=== PATIENT | male | born 1960 | race African-American/Black ===

== ENCOUNTER 2017-02-16 14:48 | Inpatient (IN) | payer OTHER ==
[2017-02-16] MEDS: ASPIRIN 81 MG TAB PO (15:39)
[2017-02-16 16:01] LABS: WHITE BLOOD COUNT 14.2 10^3/ul (4.8-10.8)
[2017-02-16 16:01] LABS: ABNORMAL IP MESSAGE 1; HEMATOCRIT 32.7 % (42.0-52.0); HEMOGLOBIN 11.4 g/dl (14.0-18.0); MEAN CORPUSCULAR HEMOGLOBIN 32.6 pg (29.0-33.0); MEAN CORPUSCULAR HGB CONC 34.9 g/dl (32.0-37.0); MEAN CORPUSCULAR VOLUME 93.4 fl (82.0-101.0); MEAN PLATELET VOLUME 10.9 fl (7.4-10.4); PLATELET COUNT 55 10^3/UL (140-415); POSITIVE DIFF @See below; RED CELL DISTRIBUTION WIDTH 12.4 % (11.5-14.5)
[2017-02-16] MEDS: morphine 4 MG/ML VIAL IV (16:08)
[2017-02-16] MEDS: hydrALAzine 20 MG INJ IV (16:09)
[2017-02-16 16:12] LABS: ADD MAN DIFF? YES
[2017-02-16 16:14] LABS: INR 1.01; PARTIAL THROMBOPLASTIN TIME 31.7 Sec (25.0-35.0); PROTIME 13.4 Sec (11.9-14.9)
[2017-02-16 16:19] LABS: ANION GAP 16 (8-16); BLOOD UREA NITROGEN 49 mg/dl (7-20); CALCIUM 9.2 mg/dl (8.4-10.2); CARBON DIOXIDE 28 mmol/L (21-31); CHLORIDE 105 mmol/L (97-110); CREATININE 2.78 mg/dl (0.61-1.24); GLUCOSE 131 mg/dl (70-220); POTASSIUM 4.1 mmol/L (3.5-5.1); SODIUM 145 mmol/L (135-144)
[2017-02-16 16:29] LABS: BAND NEUTROPHILS #M 0.4 10^3/ul (0.0-0.6); BAND NEUTROPHILS % (M) 3 % (0-4); GIANT THROMBO% (M) 1 % (0-0); LYMPHOCYTES #M 0.2 10^3/ul (0.8-2.9); LYMPHOCYTES % (M) 2 % (15-51); MONOCYTE #M 1.8 10^3/ul (0.3-0.9); MONOCYTES % (M) 13 % (0-11); PLATELET ESTIMATE DECREASED; POLYCHROMASIA 1+ (0-0); SEG NEUT #M 11.7 10^3/ul (1.7-7.5); SEGMENTED NEUTROPHILS (M) % 82 % (39-77); SMUDGE%M 2 % (0-0)
[2017-02-16] MEDS: LABETALOL HCL 20MG INJ IV ×2 (16:36→18:49)
[2017-02-16] MEDS: niCARdipine-NS 0.1MG/ML DRIP 200 ML IV (18:38)
[2017-02-16] MEDS: DEXTROSE 5%-0.45% NACL 1,000 ML IV (19:19)
[2017-02-16] MEDS ORDERED: ALBUTEROL/IPRATROPIUM (NEB) 3 ML AMP NEB (19:30)
[2017-02-16] MEDS ORDERED: BISACODYL (EC) 5 MG TAB PO (19:30)
[2017-02-16] MEDS ORDERED: HEPARIN 1000 UNITS/ML 10 ML INJ IV ×2 (19:30)
[2017-02-16] MEDS ORDERED: HYDROCODONE/APAP (5/325) TAB PO (19:30)
[2017-02-16] MEDS ORDERED: HALOPERIDOL 5 MG INJ IV (19:30)
[2017-02-16] MEDS ORDERED: ONDANSETRON 4 MG INJ IV (19:30)
[2017-02-16] MEDS ORDERED: ACETAMINOPHEN 650MG/20.3ML CUP PO (19:30)
[2017-02-16] MEDS ORDERED: HEPARIN 25000 UNITS/250 ML 250 ML IV (19:30)
[2017-02-16] MEDS ORDERED: LORAZEPAM 2 MG INJ IV (19:30)
[2017-02-16 20:37] LABS: VALPROATE 43 ug/ml (50-100)
[2017-02-16 22:11] LABS: CREATINE KINASE 89 IU/L (23-200)
[2017-02-16 22:23] LABS: CK INDEX 2.6
[2017-02-16 22:24] LABS: TROPONIN-I 0.425 ng/ml (0.00-0.12)
[2017-02-17] MEDS: RISPERIDONE 1 MG TAB PO ×3 (01:00→22:20)
[2017-02-17] MEDS: DIVALPROEX (EC) 250 MG TAB PO ×3 (01:00→22:20)
[2017-02-17] MEDS: ATORVASTATIN 80 MG TAB PO ×2 (01:00→22:20)
[2017-02-17] MEDS: QUETIAPINE 25 MG TAB PO ×3 (01:00→22:20)
[2017-02-17] MEDS: FAMOTIDINE 20 MG INJ IV ×2 (01:20→12:15)
[2017-02-17] MEDS: niCARdipine-NS 0.1MG/ML DRIP 200 ML IV ×2 (04:00→09:27)
[2017-02-17 07:04] LABS: ABNORMAL IP MESSAGE 1; HEMATOCRIT 25.3 % (42.0-52.0); HEMOGLOBIN 8.6 g/dl (14.0-18.0); MEAN CORPUSCULAR HEMOGLOBIN 32.3 pg (29.0-33.0); MEAN CORPUSCULAR VOLUME 95.1 fl (82.0-101.0); MEAN PLATELET VOLUME 12.4 fl (7.4-10.4); PLATELET COUNT 48 10^3/UL (140-415); RED BLOOD COUNT 2.66 10^6/ul (4.70-6.10); RED CELL DISTRIBUTION WIDTH 12.6 % (11.5-14.5)
[2017-02-17 07:04] LABS: WHITE BLOOD COUNT 9.4 10^3/ul (4.8-10.8)
[2017-02-17 07:09] LABS: LACTIC ACID 1.2 mmol/L (0.5-2.0)
[2017-02-17 07:11] LABS: CREATINE KINASE 73 IU/L (23-200)
[2017-02-17 07:17] LABS: LDL CHOLESTEROL,CALCULATED 106 mg/dl
[2017-02-17 07:23] LABS: ALANINE AMINOTRANSFERASE 34 IU/L (13-69); ALBUMIN 2.7 g/dl (3.3-4.9); ALBUMIN/GLOBULIN RATIO 0.87; ALKALINE PHOSPHATASE 39 IU/L (42-121); ANION GAP 14 (8-16); ASPARTATE AMINO TRANSFERASE 32 IU/L (15-46); BILIRUBIN,INDIRECT 0.3 mg/dl (0-1.1); BILIRUBIN,TOTAL 0.3 mg/dl (0.2-1.3); BLOOD UREA NITROGEN 56 mg/dl (7-20); CALCIUM 8.1 mg/dl (8.4-10.2); CARBON DIOXIDE 27 mmol/L (21-31); CHLORIDE 107 mmol/L (97-110); CREATININE 2.96 mg/dl (0.61-1.24); GLUCOSE 112 mg/dl (70-220); POTASSIUM 3.9 mmol/L (3.5-5.1); SODIUM 144 mmol/L (135-144); TOTAL PROTEIN 5.8 g/dl (6.1-8.1)
[2017-02-17 07:24] LABS: CK INDEX 2.6
[2017-02-17 07:27] LABS: CK-MB 1.91 ng/ml (0.0-2.4); TROPONIN-I 0.261 ng/ml (0.00-0.12)
[2017-02-17 07:28] LABS: ADD MAN DIFF? YES
[2017-02-17 07:35] LABS: FREE THYROXINE INDEX (Calc) 4.11 ug/ml (0.65-3.89)
[2017-02-17 07:42] LABS: CHOLESTEROL 175 mg/dl (100-200)
[2017-02-17 07:42] LABS: HDL CHOLESTEROL 57 mg/dl (28-71); T3 UPTAKE 30.2 % (23.5-40.5); T4 (THYROXINE) 13.6 ug/dl (5.5-11.0); TRIGLYCERIDES 62 mg/dl (0-149)
[2017-02-17] MEDS: DEXTROSE 5%-0.45% NACL 1,000 ML IV (09:22)
[2017-02-17] MEDS: AMLODIPINE 10 MG TAB PO (12:15)
[2017-02-17] MEDS: ASPIRIN 81 MG TAB PO (12:16)
[2017-02-17 18:14] LABS: HEMATOCRIT 25.7 % (42.0-52.0); HEMOGLOBIN 8.8 g/dl (14.0-18.0)
[2017-02-17 18:31] LABS: IRON 18 ug/dl (35-150)
[2017-02-17 18:32] LABS: CREATINE KINASE 214 IU/L (23-200)
[2017-02-17 18:40] LABS: % IRON SATURATION 9 % SAT (22-52); TOTAL IRON BINDING CAPACITY 201 ug/dl (241-421)
[2017-02-17 18:45] LABS: CK INDEX 1.9
[2017-02-17 18:52] LABS: CK-MB 4.14 ng/ml (0.0-2.4); TROPONIN-I 0.188 ng/ml (0.00-0.12)
[2017-02-18] MEDS: DEXTROSE 5%-0.45% NACL 1,000 ML IV ×3 (00:03→09:20)
[2017-02-18] MEDS: DIVALPROEX (EC) 250 MG TAB PO ×2 (09:00→20:37)
[2017-02-18] MEDS: QUETIAPINE 25 MG TAB PO ×2 (09:20→20:37)
[2017-02-18] MEDS: RISPERIDONE 1 MG TAB PO ×2 (09:20→20:37)
[2017-02-18] MEDS: ASPIRIN 81 MG TAB PO (09:20)
[2017-02-18] MEDS: FAMOTIDINE 20 MG INJ IV (09:21)
[2017-02-18] MEDS: AMLODIPINE 10 MG TAB PO (09:21)
[2017-02-18 10:07] LABS: ADD MAN DIFF? NO
[2017-02-18 10:14] LABS: WHITE BLOOD COUNT 7.6 10^3/ul (4.8-10.8)
[2017-02-18 10:14] LABS: ABNORMAL IP MESSAGE 1; BASOPHILS % 0.3 % (0.0-2.0); EOSINOPHILS # 0.7 10^3/ul (0.0-0.5); EOSINOPHILS % 9.2 % (0.0-7.0); HEMATOCRIT 24.2 % (42.0-52.0); HEMOGLOBIN 8.1 g/dl (14.0-18.0); LYMPHOCYTES % 13.5 % (15.0-51.0); MEAN CORPUSCULAR HGB CONC 33.5 g/dl (32.0-37.0); MEAN CORPUSCULAR VOLUME 95.7 fl (82.0-101.0); MEAN PLATELET VOLUME 11.8 fl (7.4-10.4); MONOCYTE # 0.9 10^3/ul (0.3-0.9); MONOCYTES % 12.2 % (0.0-11.0); NEUTROPHIL # 4.9 10^3/ul (1.6-7.5); NEUTROPHILS % 64.3 % (39.0-77.0); PLATELET COUNT 62 10^3/UL (140-415); POSITIVE DIFF @See below; RED BLOOD COUNT 2.53 10^6/ul (4.70-6.10); RED CELL DISTRIBUTION WIDTH 12.8 % (11.5-14.5)
[2017-02-18 10:33] LABS: ANION GAP 14 (8-16); BLOOD UREA NITROGEN 56 mg/dl (7-20); CARBON DIOXIDE 25 mmol/L (21-31); CHLORIDE 107 mmol/L (97-110); CREATINE KINASE 740 IU/L (23-200); CREATININE 3.09 mg/dl (0.61-1.24); GLUCOSE 89 mg/dl (70-220); MAGNESIUM 1.9 mg/dl (1.7-2.5); PHOSPHORUS 4.2 mg/dl (2.5-4.9); POTASSIUM 3.8 mmol/L (3.5-5.1); SODIUM 142 mmol/L (135-144)
[2017-02-18 10:41] LABS: CK INDEX 0.8; CK-MB 5.63 ng/ml (0.0-2.4); TROPONIN-I 0.162 ng/ml (0.00-0.12)
[2017-02-18] MEDS ORDERED: LABETALOL HCL 20MG INJ IV (12:00)
[2017-02-18] MEDS: CLONIDINE 0.1 MG/24 HR PATCH TRANSDERM (13:37)
[2017-02-18] MEDS: SOD FERRIC GLUC COMPLX 125 MG in SOD CHLORIDE 0.9% 100 ML IVPB (13:37)
[2017-02-18] MEDS: ATORVASTATIN 80 MG TAB PO (20:37)
[2017-02-19] MEDS: hydrALAzine 20 MG INJ IV (01:23)
[2017-02-19 08:23] LABS: ADD MAN DIFF? NO
[2017-02-19 08:28] LABS: HEMATOCRIT 24.9 % (42.0-52.0); HEMOGLOBIN 8.2 g/dl (14.0-18.0); MEAN CORPUSCULAR HEMOGLOBIN 31.9 pg (29.0-33.0); MEAN CORPUSCULAR HGB CONC 32.9 g/dl (32.0-37.0); MEAN CORPUSCULAR VOLUME 96.9 fl (82.0-101.0); NEUTROPHILS % 70.4 % (39.0-77.0); PLATELET COUNT 82 10^3/UL (140-415); RED BLOOD COUNT 2.57 10^6/ul (4.70-6.10); RED CELL DISTRIBUTION WIDTH 12.6 % (11.5-14.5)
[2017-02-19 08:29] LABS: ABNORMAL IP MESSAGE 1; BASOPHILS % 0.1 % (0.0-2.0); EOSINOPHILS # 0.4 10^3/ul (0.0-0.5); LYMPHOCYTES # 0.9 10^3/ul (0.8-2.9); LYMPHOCYTES % 13.1 % (15.0-51.0); MONOCYTE # 0.8 10^3/ul (0.3-0.9); MONOCYTES % 10.8 % (0.0-11.0); POSITIVE DIFF @See below
[2017-02-19 08:58] LABS: CREATINE KINASE 681 IU/L (23-200)
[2017-02-19 09:00] LABS: ANION GAP 16 (8-16); BLOOD UREA NITROGEN 57 mg/dl (7-20); CALCIUM 8.3 mg/dl (8.4-10.2); CARBON DIOXIDE 23 mmol/L (21-31); CHLORIDE 109 mmol/L (97-110); CREATININE 2.88 mg/dl (0.61-1.24); GLUCOSE 90 mg/dl (70-220); MAGNESIUM 1.9 mg/dl (1.7-2.5); POTASSIUM 3.8 mmol/L (3.5-5.1); SODIUM 144 mmol/L (135-144)
[2017-02-19] MEDS: AMLODIPINE 10 MG TAB PO (09:10)
[2017-02-19 09:11] LABS: CK INDEX 0.7; TROPONIN-I 0.109 ng/ml (0.00-0.12)
[2017-02-19] MEDS: DIVALPROEX (EC) 250 MG TAB PO ×2 (09:11→21:29)
[2017-02-19] MEDS: FAMOTIDINE 20 MG INJ IV (09:11)
[2017-02-19] MEDS: QUETIAPINE 25 MG TAB PO ×2 (09:11→21:29)
[2017-02-19] MEDS: ASPIRIN 81 MG TAB PO (09:12)
[2017-02-19] MEDS: RISPERIDONE 1 MG TAB PO ×2 (09:13→21:29)
[2017-02-19 09:16] LABS: CK-MB 4.51 ng/ml (0.0-2.4)
[2017-02-19] MEDS: SOD FERRIC GLUC COMPLX 125 MG in SOD CHLORIDE 0.9% 100 ML IVPB (12:17)
[2017-02-19] MEDS: ATORVASTATIN 80 MG TAB PO (21:29)
[2017-02-20 07:55] LABS: ADD MAN DIFF? NO
[2017-02-20 07:58] LABS: WHITE BLOOD COUNT 7.1 10^3/ul (4.8-10.8)
[2017-02-20 07:58] LABS: BASOPHILS % 0.1 % (0.0-2.0); EOSINOPHILS # 0.1 10^3/ul (0.0-0.5); EOSINOPHILS % 1.7 % (0.0-7.0); HEMATOCRIT 24.9 % (42.0-52.0); HEMOGLOBIN 8.1 g/dl (14.0-18.0); LYMPHOCYTES # 0.8 10^3/ul (0.8-2.9); LYMPHOCYTES % 11.6 % (15.0-51.0); MEAN CORPUSCULAR HEMOGLOBIN 31.8 pg (29.0-33.0); MEAN CORPUSCULAR HGB CONC 32.5 g/dl (32.0-37.0); MEAN CORPUSCULAR VOLUME 97.6 fl (82.0-101.0); MONOCYTE # 0.8 10^3/ul (0.3-0.9); MONOCYTES % 11.2 % (0.0-11.0); NEUTROPHIL # 5.2 10^3/ul (1.6-7.5); NEUTROPHILS % 73.8 % (39.0-77.0); PLATELET COUNT 112 10^3/UL (140-415); RED BLOOD COUNT 2.55 10^6/ul (4.70-6.10); RED CELL DISTRIBUTION WIDTH 12.7 % (11.5-14.5)
[2017-02-20 08:16] LABS: ANION GAP 16 (8-16); BLOOD UREA NITROGEN 55 mg/dl (7-20); CALCIUM 8.6 mg/dl (8.4-10.2); CARBON DIOXIDE 24 mmol/L (21-31); CHLORIDE 111 mmol/L (97-110); CREATININE 3.16 mg/dl (0.61-1.24); GLUCOSE 97 mg/dl (70-220); MAGNESIUM 2.1 mg/dl (1.7-2.5); POTASSIUM 3.5 mmol/L (3.5-5.1); SODIUM 147 mmol/L (135-144)
[2017-02-20] MEDS: QUETIAPINE 25 MG TAB PO ×2 (08:18→21:51)
[2017-02-20] MEDS: ASPIRIN 81 MG TAB PO (08:18)
[2017-02-20] MEDS: RISPERIDONE 1 MG TAB PO ×2 (08:19→21:52)
[2017-02-20] MEDS: DIVALPROEX (EC) 250 MG TAB PO ×2 (08:19→21:52)
[2017-02-20] MEDS: FAMOTIDINE 20 MG INJ IV (08:19)
[2017-02-20] MEDS: AMLODIPINE 10 MG TAB PO (08:20)
[2017-02-20] MEDS: SOD FERRIC GLUC COMPLX 125 MG in SOD CHLORIDE 0.9% 100 ML IVPB (11:58)
[2017-02-20] MEDS: DEXTROSE 5% 1,000 ML IV (11:58)
[2017-02-20] MEDS: ATORVASTATIN 80 MG TAB PO (21:51)
[2017-02-20] MEDS: EPOETIN 4000 UNITS/ML (NON ESRD/NON ONCOLOGY) SC (22:23)
[2017-02-20 23:06] LABS: CREATININE,URINE RANDOM 77.67 mg/dl (20-370)
[2017-02-20 23:42] LABS: SCRET 3.16 mg/dl (0.61-1.24)
[2017-02-20 23:44] LABS: COLLECTION PERIOD 24 hrs; CREATININE CLEARANCE 18.8 mls/min (84.0-162.0); VOLUME 1100 ml/24hrs
[2017-02-21 08:24] LABS: WHITE BLOOD COUNT 7.7 10^3/ul (4.8-10.8)
[2017-02-21 08:24] LABS: ABNORMAL IP MESSAGE 1; HEMATOCRIT 24.1 % (42.0-52.0); MEAN CORPUSCULAR HEMOGLOBIN 32.4 pg (29.0-33.0); MEAN CORPUSCULAR HGB CONC 33.2 g/dl (32.0-37.0); MEAN CORPUSCULAR VOLUME 97.6 fl (82.0-101.0); MEAN PLATELET VOLUME 10.4 fl (7.4-10.4); PLATELET COUNT 137 10^3/UL (140-415); POSITIVE DIFF @See below; RED BLOOD COUNT 2.47 10^6/ul (4.70-6.10); RED CELL DISTRIBUTION WIDTH 12.9 % (11.5-14.5)
[2017-02-21] MEDS: FAMOTIDINE 20 MG INJ IV (08:46)
[2017-02-21] MEDS: QUETIAPINE 25 MG TAB PO ×2 (08:48→20:18)
[2017-02-21] MEDS: RISPERIDONE 1 MG TAB PO ×2 (08:48→20:17)
[2017-02-21] MEDS: AMLODIPINE 10 MG TAB PO (08:48)
[2017-02-21] MEDS: ASPIRIN 81 MG TAB PO (08:48)
[2017-02-21] MEDS: DIVALPROEX (EC) 250 MG TAB PO ×2 (08:48→20:17)
[2017-02-21 08:51] LABS: ANION GAP 17 (8-16); BLOOD UREA NITROGEN 50 mg/dl (7-20); CARBON DIOXIDE 23 mmol/L (21-31); CHLORIDE 113 mmol/L (97-110); CREATININE 3.06 mg/dl (0.61-1.24); GLUCOSE 101 mg/dl (70-220); MAGNESIUM 2.1 mg/dl (1.7-2.5); PHOSPHORUS 4.4 mg/dl (2.5-4.9); POTASSIUM 3.6 mmol/L (3.5-5.1); SODIUM 149 mmol/L (135-144)
[2017-02-21 08:58] LABS: ADD MAN DIFF? YES
[2017-02-21 09:58] LABS: BAND NEUTROPHILS % (M) 1 % (0-4); EOSINOPHILS % (M) 2 % (0-7); LYMPHOCYTES #M 1.2 10^3/ul (0.8-2.9); LYMPHOCYTES % (M) 16 % (15-51); MONOCYTE #M 0.5 10^3/ul (0.3-0.9); MONOCYTES % (M) 7 % (0-11); PLATELET ESTIMATE DECREASED; REACTIVE LYMPHOCYTES% (M) 1 % (0-0); SEG NEUT #M 5.6 10^3/ul (1.7-7.5); SEGMENTED NEUTROPHILS (M) % 73 % (39-77); SMUDGE%M 8 % (0-0)
[2017-02-21] MEDS: DEXTROSE 5% 1,000 ML IV ×2 (12:06→20:19)
[2017-02-21] MEDS: SOD FERRIC GLUC COMPLX 125 MG in SOD CHLORIDE 0.9% 100 ML IVPB (12:06)
[2017-02-21] MEDS: ATORVASTATIN 80 MG TAB PO (20:16)
[2017-02-22 08:05] LABS: ABNORMAL IP MESSAGE 1; HEMATOCRIT 24.7 % (42.0-52.0); MEAN CORPUSCULAR HEMOGLOBIN 31.6 pg (29.0-33.0); MEAN CORPUSCULAR HGB CONC 32.4 g/dl (32.0-37.0); MEAN CORPUSCULAR VOLUME 97.6 fl (82.0-101.0); MEAN PLATELET VOLUME 10.3 fl (7.4-10.4); PLATELET COUNT 170 10^3/UL (140-415); POSITIVE DIFF @See below; RED BLOOD COUNT 2.53 10^6/ul (4.70-6.10); RED CELL DISTRIBUTION WIDTH 12.7 % (11.5-14.5)
[2017-02-22 08:05] LABS: WHITE BLOOD COUNT 8.7 10^3/ul (4.8-10.8)
[2017-02-22 08:34] LABS: ANION GAP 14 (8-16); BLOOD UREA NITROGEN 43 mg/dl (7-20); CALCIUM 8.2 mg/dl (8.4-10.2); CARBON DIOXIDE 26 mmol/L (21-31); CHLORIDE 110 mmol/L (97-110); CREATININE 3.05 mg/dl (0.61-1.24); GLUCOSE 101 mg/dl (70-220); PHOSPHORUS 3.9 mg/dl (2.5-4.9); POTASSIUM 3.4 mmol/L (3.5-5.1); SODIUM 147 mmol/L (135-144)
[2017-02-22] MEDS: RISPERIDONE 1 MG TAB PO (09:04)
[2017-02-22] MEDS: AMLODIPINE 10 MG TAB PO (09:04)
[2017-02-22] MEDS: DIVALPROEX (EC) 250 MG TAB PO ×2 (09:04→20:42)
[2017-02-22] MEDS: ASPIRIN 81 MG TAB PO (09:04)
[2017-02-22] MEDS: QUETIAPINE 25 MG TAB PO ×2 (09:04→20:41)
[2017-02-22] MEDS: FAMOTIDINE 20 MG INJ IV (09:05)
[2017-02-22 10:05] LABS: ADD MAN DIFF? YES
[2017-02-22 10:16] LABS: BAND NEUTROPHILS #M 0.1 10^3/ul (0.0-0.6); BAND NEUTROPHILS % (M) 2 % (0-4); EOSINOPHILS # 0.2 10^3/ul (0.0-0.5); EOSINOPHILS % (M) 2 % (0.0-7.0); LYMPHOCYTES # 1.2 10^3/ul (0.8-2.9); LYMPHOCYTES #M 1.2 10^3/ul (0.8-2.9); LYMPHOCYTES % (M) 14 % (15-51); METAMYELOCYTES #M 0.3 10^3/ul (0.0-0.0); METAMYELOCYTES %M 4 % (0-0); MONOCYTES % (M) 12 % (0-11); MYELOCYTES % (M) 1 % (0-0); SEG NEUT #M 5.7 10^3/ul (1.7-7.5); SEGMENTED NEUTROPHILS (M) % 65 % (39-77)
[2017-02-22 10:17] LABS: POLYCHROMASIA 1+ (0-0)
[2017-02-22] MEDS: hydrALAzine 20 MG INJ IV ×2 (11:35→15:55)
[2017-02-22] MEDS: SOD FERRIC GLUC COMPLX 125 MG in SOD CHLORIDE 0.9% 100 ML IVPB (11:35)
[2017-02-22 15:23] LABS: PHOSPHORUS 3.5 mg/dl (2.5-4.9)
[2017-02-22 17:46] LABS: ADD UMIC YES; UR ASCORBIC ACID NEGATIVE (NEGATIVE); UR BACTERIA FEW /HPF (NONE SEEN); UR BILIRUBIN (Dip) NEGATIVE (NEGATIVE); UR BLOOD (Dip) NEGATIVE (NEGATIVE); UR CLARITY CLEAR (CLEAR); UR COLOR YELLOW (YELLOW); UR GLUCOSE (Dip) NEGATIVE (NEGATIVE); UR KETONES (Dip) NEGATIVE (NEGATIVE); UR LEUKOCYTE ESTERASE (Dip) NEGATIVE Leu/ul (NEGATIVE); UR MUCUS FEW /HPF (NONE SEEN); UR NITRITE (Dip) NEGATIVE (NEGATIVE); UR RBC 1 /HPF (0-5); UR SPECIFIC GRAVITY (Dip) 1.013 (1.003-1.030); UR TOTAL PROTEIN (Dip) 2+ mg/dl (NEGATIVE); UR UROBILINOGEN (Dip) NEGATIVE (NEGATIVE); UR WBC 2 /HPF (0-5)
[2017-02-22] MEDS ORDERED: POTASSIUM CHLORIDE 50 ML IVPB (19:00)
[2017-02-22] MEDS ORDERED: POTASSIUM CHLORIDE 40 MEQ in DEXTROSE 5% 250 ML IVPB (19:00)
[2017-02-22] MEDS: ATORVASTATIN 20 MG TAB PO (20:42)
[2017-02-22] MEDS: POTASSIUM CHLORIDE 40 MEQ in DEXTROSE 5% 250 ML IVPB (20:44)
[2017-02-22] MEDS: CLONIDINE 0.3 MG/24 HR PATCH TRANSDERM (21:38)
[2017-02-22] MEDS: DEXTROSE 5% 1,000 ML IV (23:12)
[2017-02-23 08:06] LABS: ADD MAN DIFF? NO
[2017-02-23 08:20] LABS: ABNORMAL IP MESSAGE 1; BASOPHILS % 0.2 % (0.0-2.0); EOSINOPHILS # 0.1 10^3/ul (0.0-0.5); EOSINOPHILS % 1.1 % (0.0-7.0); HEMATOCRIT 23.5 % (42.0-52.0); HEMOGLOBIN 7.6 g/dl (14.0-18.0); LYMPHOCYTES # 1.1 10^3/ul (0.8-2.9); LYMPHOCYTES % 11.2 % (15.0-51.0); MEAN CORPUSCULAR HEMOGLOBIN 31.5 pg (29.0-33.0); MEAN CORPUSCULAR HGB CONC 32.3 g/dl (32.0-37.0); MEAN CORPUSCULAR VOLUME 97.5 fl (82.0-101.0); MEAN PLATELET VOLUME 10.2 fl (7.4-10.4); MONOCYTE # 1.5 10^3/ul (0.3-0.9); MONOCYTES % 15.5 % (0.0-11.0); NEUTROPHIL # 5.7 10^3/ul (1.6-7.5); NEUTROPHILS % 58.9 % (39.0-77.0); PLATELET COUNT 200 10^3/UL (140-415); POSITIVE DIFF @See below; RED BLOOD COUNT 2.41 10^6/ul (4.70-6.10); RED CELL DISTRIBUTION WIDTH 12.5 % (11.5-14.5)
[2017-02-23 08:20] LABS: WHITE BLOOD COUNT 9.7 10^3/ul (4.8-10.8)
[2017-02-23] MEDS: AMLODIPINE 10 MG TAB PO (08:28)
[2017-02-23] MEDS: ASPIRIN 81 MG TAB PO (08:28)
[2017-02-23] MEDS: RISPERIDONE 1 MG TAB PO (08:28)
[2017-02-23] MEDS: FAMOTIDINE 20 MG INJ IV (08:28)
[2017-02-23] MEDS: QUETIAPINE 25 MG TAB PO ×2 (08:28→20:57)
[2017-02-23] MEDS: DIVALPROEX (EC) 250 MG TAB PO ×2 (08:28→20:56)
[2017-02-23 08:29] LABS: ALBUMIN 2.7 g/dl (3.3-4.9); ANION GAP 10 (8-16); BLOOD UREA NITROGEN 33 mg/dl (7-20); CALCIUM 8.2 mg/dl (8.4-10.2); CARBON DIOXIDE 24 mmol/L (21-31); CHLORIDE 111 mmol/L (97-110); CREATININE 2.83 mg/dl (0.61-1.24); GLUCOSE 99 mg/dl (70-220); MAGNESIUM 1.9 mg/dl (1.7-2.5); PHOSPHORUS 3.3 mg/dl (2.5-4.9); POTASSIUM 3.9 mmol/L (3.5-5.1); SODIUM 141 mmol/L (135-144)
[2017-02-23] MEDS: DEXTROSE 5% 1,000 ML IV (12:25)
[2017-02-23] MEDS: ATORVASTATIN 20 MG TAB PO (20:56)
[2017-02-23] MEDS: BALSAM PERU/CASTOR OIL 60 GM TUBE TOP (20:58)
[2017-02-23] MEDS: morphine 2 MG INJ IV (21:09)
[2017-02-24] MEDS: DEXTROSE 5% 1,000 ML IV ×2 (01:52→15:12)
[2017-02-24 08:55] LABS: ABNORMAL IP MESSAGE 1; HEMATOCRIT 24.1 % (42.0-52.0); HEMOGLOBIN 7.9 g/dl (14.0-18.0); MEAN CORPUSCULAR HEMOGLOBIN 31.7 pg (29.0-33.0); MEAN CORPUSCULAR HGB CONC 32.8 g/dl (32.0-37.0); MEAN CORPUSCULAR VOLUME 96.8 fl (82.0-101.0); MEAN PLATELET VOLUME 9.6 fl (7.4-10.4); PLATELET COUNT 223 10^3/UL (140-415); POSITIVE DIFF @See below; RED BLOOD COUNT 2.49 10^6/ul (4.70-6.10)
[2017-02-24 08:55] LABS: WHITE BLOOD COUNT 8.7 10^3/ul (4.8-10.8)
[2017-02-24 08:59] LABS: ADD MAN DIFF? YES
[2017-02-24] MEDS: QUETIAPINE 25 MG TAB PO (09:16)
[2017-02-24] MEDS: DIVALPROEX (EC) 250 MG TAB PO (09:16)
[2017-02-24] MEDS: FAMOTIDINE 20 MG INJ IV (09:17)
[2017-02-24] MEDS: AMLODIPINE 10 MG TAB PO (09:17)
[2017-02-24] MEDS: BALSAM PERU/CASTOR OIL 60 GM TUBE TOP (09:17)
[2017-02-24] MEDS: ASPIRIN 81 MG TAB PO (09:17)
[2017-02-24 09:26] LABS: ALBUMIN 2.8 g/dl (3.3-4.9); ANION GAP 12 (8-16); BLOOD UREA NITROGEN 31 mg/dl (7-20); CALCIUM 8.4 mg/dl (8.4-10.2); CARBON DIOXIDE 26 mmol/L (21-31); CHLORIDE 104 mmol/L (97-110); CREATININE 2.49 mg/dl (0.61-1.24); GLUCOSE 103 mg/dl (70-220); MAGNESIUM 1.8 mg/dl (1.7-2.5); PHOSPHORUS 4.1 mg/dl (2.5-4.9); POTASSIUM 3.8 mmol/L (3.5-5.1); SODIUM 138 mmol/L (135-144)
[2017-02-24 09:28] LABS: ANISOCYTOSIS 1+ (0-0); BAND NEUTROPHILS #M 0.4 10^3/ul (0.0-0.6); BAND NEUTROPHILS % (M) 5 % (0-4); EOSINOPHILS % (M) 2 % (0-7); LYMPHOCYTES #M 0.7 10^3/ul (0.8-2.9); LYMPHOCYTES % (M) 9 % (15-51); METAMYELOCYTES #M 0.1 10^3/ul (0.0-0.0); METAMYELOCYTES %M 2 % (0-0); MONOCYTE #M 0.6 10^3/ul (0.3-0.9); MONOCYTES % (M) 8 % (0-11); PLATELET ESTIMATE NORMAL; POLYCHROMASIA 1+ (0-0); REACTIVE LYMPHOCYTES #M 0.2 10^3/ul (0.0-0.0); REACTIVE LYMPHOCYTES% (M) 3 % (0-0); SEG NEUT #M 6.2 10^3/ul (1.7-7.5); SEGMENTED NEUTROPHILS (M) % 71 % (39-77); SMUDGE%M 1 % (0-0)
== END 2017-02-24 17:42 | DRG 280 ==
LOC: MS4 19:22 → E/R 14:48
DX: I21.A1 Myocardial infarction type 2 (principal); G93.49 Other encephalopathy; I50.23 Acute on chronic systolic (congestive) heart failure; N17.9 Acute kidney failure, unspecified; L89.152 Pressure ulcer of sacral region, stage 2; E87.0 Hyperosmolality and hypernatremia; D69.6 Thrombocytopenia, unspecified; I42.9 Cardiomyopathy, unspecified; I16.1 Hypertensive emergency; I13.2 Hypertensive heart and chronic kidney disease with heart failure and with stage 5 chronic kidney disease, or end stage renal disease; I69.951 Hemiplegia and hemiparesis following unspecified cerebrovascular disease affecting right dominant side; G40.909 Epilepsy, unspecified, not intractable, without status epilepticus; D64.9 Anemia, unspecified; I16.0 Hypertensive urgency; D50.0 Iron deficiency anemia secondary to blood loss (chronic); N18.9 Chronic kidney disease, unspecified; I69.320 Aphasia following cerebral infarction
CPT/HCPCS: 36415; 71045; 73140; 76775; 80048; 80053; 80061; 80069; 80164; 81001; 82550; 82553; 82575; 83540; 83605; 83735; 84100; 84436; 84479; 84484; 85014; 85018; 85025; 85610; 85730; 87081; 92526; 92610; 93005; 93306; 96374; 96375; 96376; 97110; 97163; 97530; 99291-25